=== PATIENT | female | born 1990 | race Caucasian/White ===

== ENCOUNTER 2020-12-25 10:49 | Emergency (ER) | payer SELFPAY ==
[~2020-12-25] VITALS: Ht 160 cm; Wt 70.0 kg
[2020-12-25 10:57] VITALS: BP 151/73
[2020-12-25] MEDS ORDERED: VIST25 MT (13:57)
== END 2020-12-25 14:18 | disposition home or self-care (01) ==
LOC: ER 11:01
DX: F41.9 Anxiety disorder, unspecified (principal); R06.02 Shortness of breath
CPT/HCPCS: 71045; 81025; 93005; 99283